=== PATIENT | female | born 1965 | race African-American/Black ===

== ENCOUNTER 2017-12-10 09:19 | Emergency (ER) | payer MEDICAID ==
[~2017-12-10] VITALS: Ht 162.6 cm; Wt 70.8 kg
[2017-12-10 10:03] LABS: Basophils # (auto) 0 uL; Basophils % (auto) 0.3 % (0.0-2.0); Eosinophils # (auto) 0 uL; Monocytes # (auto) 0.4 uL; Neutrophils # (auto) 4.2 uL; White Blood Cell 5.9 10^3/uL (4.4-10.8)
[2017-12-10 10:06] LABS: Eosinophils % (auto) 0.3 % (0.0-7.0); Hematocrit 31.9 % (36.0-46.0); Lymphocytes # (auto) 1.2 uL; Lymphocytes % (auto) 20.8 % (10.0-50.0); Mean Corpuscular Hemoglobin 21.4 pg (28.0-32.0); Mean Corpuscular Hgb Conc. 31.3 g/dL (32.0-36.0); Mean Corpuscular Volume 68.4 fL (80.0-100.0); Neutrophils % (auto) 71.6 % (37.0-80.0); Platelet Count (auto) 303 10^3/uL (140-450); Red Blood Cells 4.66 10^6/uL (4.0-5.20)
[2017-12-10 10:23] LABS: Alanine Aminotransferase 36 U/L (13-56); Alkaline Phosphatase 141 U/L (45-117); Anion Gap 6 (5-15); Aspartate Aminotransferase 38 U/L (15-37); BUN/Creatinine Ratio 12.5; Bilirubin, Total 0.4 mg/dL (0.2-1.0); Blood Urea Nitrogen 8 mg/dL (7-18); Calcium 8.9 mg/dL (8.5-10.1); Carbon Dioxide 27 mmol/L (21-32); Chloride 107 mmol/L (98-107); GFR African American 124 mL/min; GFR Non-African American 103 mL/min; Glucose 97 mg/dL (74-106); Potassium 4.1 mmol/L (3.5-5.1); Sodium 140 mmol/L (136-145); Total Protein 7.7 g/dL (6.4-8.2)
[2017-12-10 10:25] LABS: Red Cell Distribution Width 21.4 % (11.8-14.3)
[2017-12-10 10:56] LABS: Urine Bacteria NONE SEEN /hpf (None Seen); Urine Blood Negative /uL (Negative); Urine Specific Gravity 1.003 (1.001-1.035); Urine WBC <1 /hpf (0 - 5)
[2017-12-10 11:26] VITALS: BP 135/99
[2017-12-10] MEDS ORDERED: FERROUS SULFATE 325 MG TAB PO ONE (12:30)
== END 2017-12-10 13:05 | disposition home or self-care (01) ==
LOC: ER 09:19
DX: R42 Dizziness and giddiness (principal); D64.9 Anemia, unspecified; I10 Essential (primary) hypertension; F17.210 Nicotine dependence, cigarettes, uncomplicated; Z90.49 Acquired absence of other specified parts of digestive tract; Z90.710 Acquired absence of both cervix and uterus
CPT/HCPCS: 36415; 70450; 71046; 80053; 81001; 84484; 85025; 93005